=== PATIENT | male | born 1995 | race Hispanic/Latino ===

== ENCOUNTER 2017-06-26 02:52 | Emergency (ER) | payer OTHER ==
[2017-06-26] MEDS ORDERED: ACT CHARCOAL/SORB 50 GM/240ML ONE (03:18)
[2017-06-26 04:04] LABS: Absolute Lymphocytes (CBC) 3.8 K/uL (0.7-4.9); Absolute Monocytes 0.9 K/uL (0.1-1.3); Absolute Neutrophil 5.9 K/uL (1.8-8.0); Basophils % 0.3 % (0-1.3); Hematocrit 44.8 % (39.6-49.0); MCH 30.6 pg (27.0-35.0); MCV 89.5 fL (80-100); MPV 8.8 fL (7.6-11.3); Monocytes % 8.7 % (3.3-12.3); RBC Red Blood Cell Count 5.01 M/uL (4.33-5.43)
[2017-06-26 04:07] LABS: Protime INR 1.04
[2017-06-26 04:16] LABS: Bicarbonate 26 mEq/L (21-31); Glucose Level 93 mg/dL (65-120); Potassium 3.6 mEq/L (3.6-5.0); Sodium Level 138 mEq/L (135-145)
[2017-06-26 04:22] LABS: ALT/SGPT 41 IU/L (10-60); AST/SGOT 23 IU/L (10-42); Albumin 4.4 g/dL (3.2-5.5); Alkaline Phosphatase 63 IU/L (42-121); BUN Blood Urea Nitrogen 12 mg/dL (6-20); Bilirubin Direct 0.1 mg/dL (0-0.2); Bilirubin Total 0.9 mg/dL (0.3-1.2); Protein, Total 7.4 g/dL (6.0-8.3)
[2017-06-26 04:35] LABS: Alcohol Serum/Plasma < 10 mg/dl; Salicylates Level < 4.0 mg/dl (<30)
[2017-06-26 05:04] LABS: Barbiturates NEGATIVE; Benzodiazepines NEGATIVE; Cocaine NEGATIVE; METHAMPHETAM NEGATIVE; Opiates NEGATIVE; Phencyclidine NEGATIVE; THC Cannibis NEGATIVE
--- NOTE | 2017-06-26 06:55 | EKG ---
Test Date: 2017-06-26 Test Time: 03:17:03 [employer]: EDDA MEASUREMENT RESULTS: Intervals: Rate: 75 UT: 136 QRSD: 86 QT: 390 QTc: 435 [place]: P: 26 UT: 136 QRS: 64 T: 50 INTERPRETIVE STATEMENTS: Normal sinus rhythm Normal ECG No previous ECG available for comparison Electronically Signed On 06-26-17 06:54:48 CDT by Sanket Ruiz
[2017-06-26 08:30] LABS: Urine Blood NEGATIVE (NEG); Urine Glucose NEGATIVE (NEG); Urine Protein NEGATIVE (NEG); Urine Specific Gravity 1.015 (1.005-1.030)
--- NOTE | 2017-06-26 14:58 | ER ---
Nurse's Notes [facility] Name: Jerry De Anda Age: 22 yrs Sex: Male : 1995 Arrival Date: 06/26/2017 Time: 02:53 Bed 7 Private MD: Diagnosis: Suicidal ideations Presentation: 06/26 02:53 Presenting complaint: EMS states: pt took 6 Tegretol at 0145 in attempt to "kill ak1 himself" pt stated to EMS his "baby juliaa is with another man's baby." pt stated to EMS he jumped from unknown height head first trying to kill himself yesterday. pt is incarcerated and 2 guards are at bedside. pt A\\T\\OX4 but c/o drowsiness and "drunk feeling". Transition of care: patient was not received from another setting of care. Onset of symptoms was June 26, 2017. Care prior to arrival: IV 50ml NS. 02:53 Method Of Arrival: EMS: [facility] ak1 02:53 Acuity: FORREST 2 ak1 Triage Assessment: 02:59 General: Appears in no apparent distress. Behavior is calm, cooperative. Pain: Denies ak1 pain. EENT: No signs and/or symptoms were reported regarding the EENT system. Neuro: Level of Consciousness is awake, alert, obeys commands, Oriented to person, place, time, situation, Forepart Rounder are equal bilaterally Moves all extremities. Gait is steady, Speech is normal, Facial symmetry appears normal. Cardiovascular: No deficits noted. Respiratory: No deficits noted. GI: No signs and/or symptoms were reported involving the gastrointestinal system. : No signs and/or symptoms were reported regarding the genitourinary system. Derm: No signs and/or symptoms reported regarding the dermatologic system. Musculoskeletal: No signs and/or symptoms reported regarding the musculoskeletal system. Historical: - Allergies: 02:59 No Known Allergies; ak1 - Home Meds: 02:59 Benadryl Oral [Active]; ak1 - PMHx: 02:59 insomnia; ak1 - PSHx: 02:59 None; ak1 - Immunization history:: Adult Immunizations unknown. - Social history:: Smoking status: Patient/guardian denies using tobacco. Screenin:01 Abuse screen: Denies threats or abuse. Denies injuries from another. Nutritional ak1 screening: No deficits noted. Tuberculosis screening: No symptoms or risk factors identified. Fall Risk None identified. Assessment: 03:08 Reassessment: poison control contacted. recommended basic lab studies with toxic panel ak1 workup with Tegretol every 4 hours until a down trend, EKG was recommended, activated charcoal 1gram to 2 grams per kilogram. monitor for seizures, EKG changes and raspatory depression and [employer] depression. . 03:12 Reassessment: unknown as to the dose of the Tegretol pills. ak1 04:43 Reassessment: Patient appears in no apparent distress at this time. No changes from ak1 previously documented assessment. Patient and/or family updated on plan of care and expected duration. Pain level reassessed. Patient is alert, oriented x 3, equal unlabored respirations, skin warm/dry/pink. pt still drinking his charcoal. pt informed of importance to finish drinking the charcoal. 05:16 Reassessment: poison control updated on pt status. [facility] contacted to send a ak1 screener once all labs are resulted. . 06:47 Reassessment: Patient appears in no apparent distress at this time. No changes from ak1 previously documented assessment. Patient and/or family updated on plan of care and expected duration. Pain level reassessed. Patient is alert, oriented x 3, equal unlabored respirations, skin warm/dry/pink. pt cooperative drinking the charcoal. 07:19 Reassessment: Patient appears in no apparent distress at this time. Patient and/or sv family updated on plan of care and expected duration. Pain level reassessed. Patient is alert, oriented x 3, equal unlabored respirations, skin warm/dry/pink. Pt denies suicidal ideation. Pt has 2 half-way guards at the bedside. Patient states feeling better. Patient states symptoms have improved. 08:03 Reassessment: Patient appears in no apparent distress at this time. Patient and/or sv family updated on plan of care and expected duration. Pain level reassessed. Patient is alert, oriented x 3, equal unlabored respirations, skin warm/dry/pink. 09:18 Reassessment: Basilio from Poison control called for an update. sv 09:58 Reassessment: Patient appears in no apparent distress at this time. Patient and/or sv family updated on plan of care and expected duration. Pain level reassessed. Patient is alert, oriented x 3, equal unlabored respirations, skin warm/dry/pink. 10:12 Reassessment: Patient appears in no apparent distress at this time. Patient and/or sv family updated on plan of care and expected duration. Pain level reassessed. Patient is alert, oriented x 3, equal unlabored respirations, skin warm/dry/pink. Informed we are waiting for a public health representative to come speak with the pt from [facility] and then the half-way personal will take care of the rest. 11:00 Reassessment: Patient appears in no apparent distress at this time. No changes from sv previously documented assessment. Patient and/or family updated on plan of care and expected duration. Pain level reassessed. Patient is alert, oriented x 3, equal unlabored respirations, skin warm/dry/pink. 13:00 Reassessment: Patient appears in no apparent distress at this time. No changes from sv previously documented assessment. Patient and/or family updated on plan of care and expected duration. Pain level reassessed. Patient is alert, oriented x 3, equal unlabored respirations, skin warm/dry/pink. 14:50 Reassessment: [facility] public health representative here to speak with the pt. sv 15:10 Reassessment: Patient appears in no apparent distress at this time. Patient and/or sv family updated on plan of care and expected duration. Pain level reassessed. Patient is alert, oriented x 3, equal unlabored respirations, skin warm/dry/pink. Vital Signs: 02:59 BP 142 / 80; Pulse 77; Resp 16; Temp 98.6(O); Pulse Ox 100% on R/A; Weight 92.99 kg ak1 (R); Height 6 ft. 1 in. (185.42 cm) (R); Pain 0/10; 03:05 BP 122 / 81; Pulse 77; Resp 16; Temp 98.6; Pulse Ox 100% on R/A; ak1 04:02 BP 132 / 73; Pulse 76; Resp 18; Pulse Ox 97% on R/A; Pain 0/10; ak1 04:43 BP 115 / 78; Pulse 88; Resp 18; Pulse Ox 100% on R/A; ak1 05:22 BP 134 / 94; Pulse 78; Resp 16; Temp 98.5; Pulse Ox 100% on R/A; Pain 0/10; ak1 06:22 BP 115 / 80; Pulse 74; Resp 16; Temp 98.3; Pulse Ox 100% on R/A; Pain 0/10; ak1 07:19 BP 131 / 90; Pulse 95; Resp 18; Pulse Ox 99% on R/A; sv 08:03 BP 115 / 77; Pulse 68; Resp 18; Pulse Ox 98% on R/A; Pain 0/10; sv 09:00 BP 109 / 73; Pulse 68; Resp 20; Pulse Ox 100% ; sv 10:13 BP 115 / 79; Pulse 79; Resp 20; Pulse Ox 100% ; sv 11:00 BP 127 / 85; Pulse 80; Resp 23; Pulse Ox 98% ; sv 12:00 BP 122 / 71; Pulse 67; Resp 17; Pulse Ox 98% on R/A; sv 13:44 BP 112 / 72; Pulse 65; Resp 22; Pulse Ox 100% on R/A; mh5 14:00 BP 121 / 85; Pulse 83; Resp 22; Pulse Ox 99% on R/A; sv 15:11 BP 122 / 88; Pulse 80; Resp 18; Pulse Ox 98% ; sv 02:59 Body Mass Index 27.05 (92.99 kg, 185.42 cm) ak1 ED Course: 02:53 Patient arrived in ED. ak1 02:53 Safety Checks: Personal items have been removed pt in 4 point handcuffs with 2 guards ak1 at bedside. The door is open or patient has been placed in a hallway bed/chair. 02:56 Shaquille Bartlett MD is Attending Physician. tw4 02:58 Triage completed. ak1 02:59 Arm band placed on Patient placed in an exam room, on a stretcher, on pulse oximetry, ak1 Patient notified of wait time. 03:00 Safety Checks: The door is open or patient has been placed in a hallway bed/chair. pt ak1 with 2 guards at bedside and in 4 point handcuffs. 03:01 Patient has correct armband on for positive identification. Bed in low position. Call ak1 light in reach. Side rails up X2. Security at bedside. Pulse ox on. NIBP on. 03:01 Maintain EMS IV. Dressing intact. Site clean \\T\\ dry. Gauge \\T\\ site: 20G left hand. ak 1 03:02 No provider procedures requiring assistance completed. ak1 03:03 Hortencia Linares, RN is Primary Nurse. ak1 03:15 Safety Checks: The door is open or patient has been placed in a hallway bed/chair. ak1 03:22 Initial lab(s) drawn, by me, sent to lab. EKG done, by ED staff, reviewed by Shaquille Bartlett MD. 03:30 Safety Checks: The door is open or patient has been placed in a hallway bed/chair. ak1 03:45 Safety Checks: The door is open or patient has been placed in a hallway bed/chair. ak1 04:00 Safety Checks: The door is open or patient has been placed in a hallway bed/chair. ak1 04:15 Safety Checks: The door is open or patient has been placed in a hallway bed/chair. ak1 04:30 Safety Checks: The door is open or patient has been placed in a hallway bed/chair. ak1 04:45 Safety Checks: The door is open or patient has been placed in a hallway bed/chair. ak1 05:00 Safety Checks: The door is open or patient has been placed in a hallway bed/chair. ak1 05:15 Safety Checks: The door is open or patient has been placed in a hallway bed/chair. ak1 05:30 Safety Checks: The door is open or patient has been placed in a hallway bed/chair. ak1 05:45 Safety Checks: The door is open or patient has been placed in a hallway bed/chair. ak1 06:00 Safety Checks: The door is open or patient has been placed in a hallway bed/chair. ak1 06:15 Safety Checks: The door is open or patient has been placed in a hallway bed/chair. ak1 06:27 Safety Checks: The door is open or patient has been placed in a hallway bed/chair. ak1 06:27 2 guards at bedside with pt in [address] [facility] will send a screener.ak1 06:45 Safety Checks: The door is open or patient has been placed in a hallway bed/chair. ak1 06:56 Safety Checks: The door is open or patient has been placed in a hallway bed/chair. ak1 07:00 No apparent distress. Safety Checks: Personal items have been removed The door is open sv or patient has been placed in a hallway bed/chair. 2 half-way guards at the bedside. 07:01 Primary Nurse role handed off by Hortencia Linares RN sv 07:01 Luana Chaudhary, JAMES is Primary Nurse. sv 07:15 No apparent distress. Safety Checks: Personal items have been removed The door is open sv or patient has been placed in a hallway bed/chair. 2 half-way guards at the bedside. 07:18 Repeat lab(s) drawn. by me, sent to lab. sv 07:30 Safety Checks: Personal items have been removed The door is open or patient has been sv placed in a hallway bed/chair. 2 half-way guards at the bedside. 07:45 Safety Checks: Personal items have been removed The door is open or patient has been sv placed in a hallway bed/chair. 2 half-way guards at the bedside. 08:00 Safety Checks: Personal items have been removed The door is open or patient has been sv placed in a hallway bed/chair. 2 half-way guards at the bedside. 08:15 Safety Checks: Personal items have been removed The door is open or patient has been sv placed in a hallway bed/chair. 2 half-way guards at the bedside. 08:30 Safety Checks: Personal items have been removed The door is open or patient has been sv placed in a hallway bed/chair. 2 half-way guards at the bedside. 08:45 Safety Checks: Personal items have been removed The door is open or patient has been sv placed in a hallway bed/chair. 2 half-way guards at the bedside. 09:00 Safety Checks: Personal items have been removed The door is open or patient has been sv placed in a hallway bed/chair. 2 half-way guards at the bedside. 09:15 Safety Checks: Personal items have been removed The door is open or patient has been sv placed in a hallway bed/chair. 2 half-way guards at the bedside. 09:30 Safety Checks: Personal items have been removed The door is open or patient has been sv placed in a hallway bed/chair. 2 half-way guards at the bedside. 09:45 Safety Checks: Personal items have been removed The door is open or patient has been sv placed in a hallway bed/chair. 2 half-way guards at the bedside. 09:56 LAB Add On Sent. sv 10:00 Safety Checks: Personal items have been removed The door is open or patient has been sv placed in a hallway bed/chair. 2 half-way guards at the bedside. 10:15 Safety Checks: Personal items have been removed The door is open or patient has been sv placed in a hallway bed/chair. 2 half-way guards at the bedside. 10:30 Safety Checks: Personal items have been removed The door is open or patient has been sv placed in a hallway bed/chair. 2 half-way guards at the bedside. 10:45 Safety Checks: Personal items have been removed The door is open or patient has been sv placed in a hallway bed/chair. 2 half-way guards at the bedside. 11:00 Safety Checks: Personal items have been removed The door is open or patient has been sv placed in a hallway bed/chair. 2 half-way guards at the bedside. 11:15 Safety Checks: Personal items have been removed The door is open or patient has been sv placed in a hallway bed/chair. 2 half-way guards at the bedside. 11:30 Safety Checks: Personal items have been removed The door is open or patient has been sv placed in a hallway bed/chair. 2 half-way guards at the bedside. 11:45 Safety Checks: Personal items have been removed The door is open or patient has been sv placed in a hallway bed/chair. 2 half-way guards at the bedside. 12:00 Safety Checks: Personal items have been removed The door is open or patient has been sv placed in a hallway bed/chair. 2 half-way guards at the bedside. 15:11 IV discontinued, intact, bleeding controlled, No redness/swelling at site. Pressure sv dressing applied. Administered Medications: 03:31 Drug: Activated Charcoal Suspension (50 g/240 mL) 1 g/kg Route: PO; ak1 05:15 Follow up: Response: No adverse reaction ak1 Outcome: 14:58 Discharge ordered by . rn 15:11 Discharged to Law Enforcement sv 15:11 Condition: stable 15:11 Discharge instructions given to half-way guards Instructed on discharge instructions, follow up and referral plans. Demonstrated understanding of instructions, follow-up care. 15:13 Patient left the ED. sv Signatures: Luana Chaudhary RN RN Isacc Guzman MD MD rn Christian, Chelsea cc Krenek, Amber, RN Mandy Foy [facility] Shaquille Bartlett MD MD tw4 Corrections: (The following items were deleted from the chart) 08:00 07:19 Reassessment: Patient appears in no apparent distress at this time. Patient sv and/or family updated on plan of care and expected duration. Pain level reassessed. Patient is alert, oriented x 3, equal unlabored respirations, skin warm/dry/pink. Patient states feeling better. Patient states symptoms have improved. sv 08:01 07:19 Reassessment: Patient appears in no apparent distress at this time. Patient sv and/or family updated on plan of care and expected duration. Pain level reassessed. Patient is alert, oriented x 3, equal unlabored respirations, skin warm/dry/pink. Pt denies suicidal ideation. Patient states feeling better. Patient states symptoms have improved. sv
--- NOTE | 2017-06-26 14:58 | EDPHYS ---
Physician Documentation [facility] Name: Jerry De Anda Age: 22 yrs Sex: Male : 1995 Arrival Date: 06/26/2017 Time: 02:53 Bed 7 Private MD: ED Physician Shaquille Bartlett HPI: 06/26 06:34 This 22 yrs old Male presents to ER via EMS with complaints of Possible tw4 Overdose. 06:34 The patient presents to the emergency department with a known poisoning. Context: tw4 Method:. Associated signs and symptoms: The patient has no apparent associated signs or symptoms. Severity of symptoms: At their worst the symptoms were moderate in the emergency department the symptoms are unchanged. The patient has not experienced similar symptoms in the past. 06:34 The patient presents to the emergency department after a known overdose, that was tw4 intentional. Context: Time: just prior to arrival, Extent: mild ingestion, took 6 Tegretol tabs, and was witnessed by a bystander. Historical: - Allergies: 02:59 No Known Allergies; ak1 - Home Meds: 02:59 Benadryl Oral [Active]; ak1 - PMHx: 02:59 insomnia; ak1 - PSHx: 02:59 None; ak1 - Immunization history:: Adult Immunizations unknown. - Social history:: Smoking status: Patient/guardian denies using tobacco. ROS: 06:34 Constitutional: Negative for fever, chills, and weight loss, Cardiovascular: Negative tw4 for chest pain, palpitations, and edema, Respiratory: Negative for shortness of breath, cough, wheezing, and pleuritic chest pain, Abdomen/GI: Negative for abdominal pain, nausea, vomiting, diarrhea, and constipation, MS/Extremity: Negative for injury and deformity. 06:34 Neuro: Positive for dizziness, Negative for altered mental status, gait disturbance, headache, hearing loss, loss of consciousness, numbness, seizure activity, speech changes, syncope. 06:34 Psych: Positive for depression, suicide gesture. Exam: 06:34 Constitutional: This is a well developed, well nourished patient who is awake, alert, tw4 and in no acute distress. Head/Face: Normocephalic, atraumatic. Chest/axilla: Normal chest wall appearance and motion. Nontender with no deformity. No lesions are appreciated. Cardiovascular: Regular rate and rhythm with a normal S1 and S2. No gallops, murmurs, or rubs. Normal PMI, no JVD. No pulse deficits. Respiratory: Lungs have equal breath sounds bilaterally, clear to auscultation and percussion. No rales, rhonchi or wheezes noted. No increased work of breathing, no retractions or nasal flaring. Abdomen/GI: Soft, non-tender, with normal bowel sounds. No distension or tympany. No guarding or rebound. No evidence of tenderness throughout. Back: No spinal tenderness. No costovertebral tenderness. Full range of motion. MS/ Extremity: Pulses equal, no cyanosis. Neurovascular intact. Full, normal range of motion. 06:34 Psych: Behavior/mood is pleasant, Affect is calm, Oriented to person, place, time, Patient having thoughts of suicide. Plan for suicide is took pills after issues with significant other Judgement / Insight is normal. 06:38 ECG was reviewed by the Attending Physician. tw4 Vital Signs: 02:59 BP 142 / 80; Pulse 77; Resp 16; Temp 98.6(O); Pulse Ox 100% on R/A; Weight 92.99 kg ak1 (R); Height 6 ft. 1 in. (185.42 cm) (R); Pain 0/10; 03:05 BP 122 / 81; Pulse 77; Resp 16; Temp 98.6; Pulse Ox 100% on R/A; ak1 04:02 BP 132 / 73; Pulse 76; Resp 18; Pulse Ox 97% on R/A; Pain 0/10; ak1 04:43 BP 115 / 78; Pulse 88; Resp 18; Pulse Ox 100% on R/A; ak1 05:22 BP 134 / 94; Pulse 78; Resp 16; Temp 98.5; Pulse Ox 100% on R/A; Pain 0/10; ak1 06:22 BP 115 / 80; Pulse 74; Resp 16; Temp 98.3; Pulse Ox 100% on R/A; Pain 0/10; ak1 07:19 BP 131 / 90; Pulse 95; Resp 18; Pulse Ox 99% on R/A; sv 08:03 BP 115 / 77; Pulse 68; Resp 18; Pulse Ox 98% on R/A; Pain 0/10; sv 09:00 BP 109 / 73; Pulse 68; Resp 20; Pulse Ox 100% ; sv 10:13 BP 115 / 79; Pulse 79; Resp 20; Pulse Ox 100% ; sv 11:00 BP 127 / 85; Pulse 80; Resp 23; Pulse Ox 98% ; sv 12:00 BP 122 / 71; Pulse 67; Resp 17; Pulse Ox 98% on R/A; sv 13:44 BP 112 / 72; Pulse 65; Resp 22; Pulse Ox 100% on R/A; mh5 14:00 BP 121 / 85; Pulse 83; Resp 22; Pulse Ox 99% on R/A; sv 15:11 BP 122 / 88; Pulse 80; Resp 18; Pulse Ox 98% ; sv 02:59 Body Mass Index 27.05 (92.99 kg, 185.42 cm) ak1 MDM: 03:24 Patient medically screened. tw4 06:38 Differential diagnosis: Ingestion/exposure to Tegeretol polypharmacy. Data reviewed: tw4 vital signs, nurses notes. Test interpretation: by ED physician or midlevel provider: ECG. 06:38 Counseling: I had a detailed discussion with the patient and/or guardian regarding: the tw4 historical points, exam findings, and any diagnostic results supporting the discharge/admit diagnosis, lab results. Other consultation: cattle care worker was called and will evaluate the patient's circumstances, [facility]. 14:58 ED course: Evaluated by [facility] mental health screener, patient with 2 recent rn suicide attempts/ideations, [facility], relayed message to [facility] unit and guards, they contacted the unit, and state to take him back, will place under suicide watch and have psychiatry see him there. . 06/26 02:56 Order name: Acetaminophen; Complete Time: 08:25 06/26 02:56 Order name: Basic Metabolic Panel; Complete Time: 08:25 06/26 02:56 Order name: CBC with Diff; Complete Time: 08:25 06/26 02:56 Order name: ETOH Level; Complete Time: 08:25 06/26 02:56 Order name: Hepatic Function; Complete Time: 08:25 06/26 02:56 Order name: PT-INR; Complete Time: 08:25 06/26 02:56 Order name: Ptt, Activated; Complete Time: 08:25 06/26 02:56 Order name: Salicylate; Complete Time: 08:25 tw4 06/26 02:56 Order name: Urine Drug Screen; Complete Time: 08:25 tw4 06/26 03:15 Order name: Carbamazepine (tegretol); Complete Time: 08:25 ak1 06/26 07:32 Order name: LAB Add On ag 06/26 07:33 Order name: Carbamazepine (Tegretol) Level; Complete Time: 08:25 EDMS 06/26 07:43 Order name: Urine Dipstick--Ancillary (enter results) ag 06/26 02:56 Order name: EKG; Complete Time: 02:57 tw4 06/26 02:56 Order name: EKG - Nurse/Tech; Complete Time: 03:22 tw4 06/26 02:56 Order name: IV Saline Lock; Complete Time: 03:15 tw4 06/26 02:56 Order name: Labs collected and sent; Complete Time: 03:15 tw4 06/26 02:56 Order name: Urine Dipstick-Ancillary (obtain specimen); Complete Time: 05:16 tw4 06/26 10:19 Order name: Diet Regular; Complete Time: 10:19 sv Administered Medications: 03:31 Drug: Activated Charcoal Suspension (50 g/240 mL) 1 g/kg Route: PO; ak1 05:15 Follow up: Response: No adverse reaction ak1 Disposition: 06/26/17 14:58 Discharged to Home. Impression: Suicidal ideations. - Condition is Stable. - Discharge Instructions: Depression, Adult, Helping Someone Who is Suicidal. - Medication Reconciliation Form, Thank You Letter, Antibiotic Education, Prescription Opioid Use form. - Follow up: Private Physician; When: As needed; Reason: Recheck today's complaints, Re-evaluation by your physician. - Problem is new. - Symptoms have improved. Signatures: Dispatcher [employer] EDLuana Fraire RN RN sv Nieto, Roman, MD MD rn Krenek, Amber, RN RN ak1 Shaquille Bartlett MD MD tw4
== END 2017-06-26 15:13 | disposition home or self-care (01) ==
LOC: ER 02:52
DX: R45.851 Suicidal ideations (principal)
CPT/HCPCS: 36415; 80048; 80076; 80156; 80307; 80320; 80329; 81003; 85025; 85610; 85730; 93005; 99285

== ENCOUNTER 2017-07-18 02:13 | Emergency (ER) | payer OTHER ==
[2017-07-18 02:41] LABS: Absolute Monocytes 0.8 K/uL (0.1-1.3); Absolute Neutrophil 5.6 K/uL (1.8-8.0); Basophils % 0.6 % (0-1.3); Eosinophils % 0.6 % (0-4.4); Hematocrit 46.1 % (39.6-49.0); Lymphocytes % 31.6 % (15.3-44.8); MCH 31.3 pg (27.0-35.0); MCV 90.7 fL (80-100); MPV 8.3 fL (7.6-11.3); Monocytes % 8.6 % (3.3-12.3); RBC Red Blood Cell Count 5.08 M/uL (4.33-5.43)
[2017-07-18 02:47] LABS: Bicarbonate 25 mEq/L (21-31); Glucose Level 106 mg/dL (65-120); Potassium 3.9 mEq/L (3.6-5.0); Sodium Level 138 mEq/L (135-145)
[2017-07-18 02:51] LABS: ALT/SGPT 41 IU/L (10-60); AST/SGOT 20 IU/L (10-42); Albumin 4.6 g/dL (3.2-5.5); Alkaline Phosphatase 62 IU/L (42-121); BUN Blood Urea Nitrogen 14 mg/dL (6-20); Protein, Total 7.5 g/dL (6.0-8.3)
--- NOTE | 2017-07-18 04:50 | EDPHYS ---
Physician Documentation [facility] Name: Jerry De Anda Age: 22 yrs Sex: Male : 1995 Arrival Date: 07/18/2017 Time: 02:14 Bed 3 Private MD: ED Physician Hernandez Oneil HPI: 07/18 03:11 This 22 yrs old Male presents to ER via EMS with complaints of Trauma ps1 Complaint. 03:11 Trauma demographics: County: The injury occurred in [place] Location of Injury: The ps1 injury occurred half-way. Mechanism of injury: self inflicted hanging with cloth from pants. Associated injuries: The patient sustained neck, contusion. Onset: The symptoms/episode began/occurred just prior to arrival. The patient has been recently seen by a physician: a psychiatrist. reportedly found in cell with cloth ligature around neck. Questionable CPR per half-way guards. Patient was alert and oriented since EMS evaluated patient. No hoarseness or vocal changes. No expanding hematoma. Alert and oriented. He said that he was upset because he found out that his significant other that he had 2 children with had an affair and is by his cousin. . Historical: - Allergies: 02:20 No Known Allergies; bp - Home Meds: 02:20 Benadryl Oral [Active]; bp - PMHx: 02:20 insomnia; bp 02:26 Suicide attempt; fc - Immunization history: Last tetanus immunization: - up to date. - Social history:: Smoking status: Patient/guardian denies using tobacco. ROS: 03:11 Constitutional: Negative for fever, chills, and weight loss, Eyes: Negative for injury, ps1 pain, redness, and discharge, Cardiovascular: Negative for chest pain, palpitations, and edema, Respiratory: Negative for shortness of breath, cough, wheezing, and pleuritic chest pain, Abdomen/GI: Negative for abdominal pain, nausea, vomiting, diarrhea, and constipation, MS/Extremity: Negative for injury and deformity, Skin: Negative for injury, rash, and discoloration, Neuro: Negative for headache, weakness, numbness, tingling, and seizure. 03:11 Neck: Positive for tenderness. 03:11 Psych: Positive for suicide gesture, suicidal ideation. Exam: 03:11 Constitutional: This is a well developed, well nourished patient who is awake, alert, ps1 and in no acute distress. Head/Face: Normocephalic, atraumatic. Eyes: Pupils equal round and reactive to light, extra-ocular motions intact. Lids and lashes normal. Conjunctiva and sclera are non-icteric and not injected. ENT: Nares patent. No nasal discharge, no septal abnormalities noted. Tympanic membranes are normal and external auditory canals are clear. Oropharynx with no redness, swelling, or masses, exudates, or evidence of obstruction, uvula midline. Mucous membranes moist. Chest/axilla: Normal chest wall appearance and motion. Nontender with no deformity. No lesions are appreciated. Cardiovascular: Regular rate and rhythm. No gallops, murmurs, or rubs. Normal PMI, no JVD. No pulse deficits. Respiratory: Lungs have equal breath sounds bilaterally, clear to auscultation and percussion. No rales, rhonchi or wheezes noted. No increased work of breathing, no retractions or nasal flaring. Abdomen/GI: Soft, non-tender, with normal bowel sounds. No distension or tympany. No guarding or rebound. No evidence of tenderness throughout. MS/ Extremity: Pulses equal, no cyanosis. Neurovascular intact. Full, normal range of motion. Neuro: Awake and alert, GCS 15, oriented to person, place, time, and situation. Cranial nerves II-XII grossly intact. Sensory grossly intact. 03:11 Neck: External neck: erythema, that is mild, of the thyroid cartilage, right sternocleidomastoid and left sternocleidomastoid, no crepitus or expanding hematoma. , Trachea: is midline with no obvious abnormalities, ROM/movement: is normal, normal phonation. 03:11 Psych: Patient having thoughts of suicide. Plan for suicide is tried to hang himself Vital Signs: 02:20 BP 129 / 81; Pulse 79; Resp 16; Temp 98; Pulse Ox 96% on R/A; bp 02:27 Weight 90.72 kg; Height 6 ft. 1 in. (185.42 cm); Pain 9/10; fc 02:50 BP 122 / 78; Pulse 71; Resp 14; Pulse Ox 100% ; bp 03:10 BP 112 / 74; Pulse 77; Resp 14; Pulse Ox 100% ; bp 03:32 BP 125 / 88; Pulse 84; Resp 16; Pulse Ox 97% ; bp 02:27 Body Mass Index 26.39 (90.72 kg, 185.42 cm) [place] Coma Score: 02:20 Eye Response: spontaneous(4). Verbal Response: oriented(5). Motor Response: obeys bp commands(6). Total: 15. Trauma Score (Adult): 02:20 Eye Response: spontaneous(1); Verbal Response: oriented(1); Motor Response: obeys bp commands(2); Systolic BP: > 89 mm Hg(4); Respiratory Rate: 10 to 29 per min(4); [place] Score: 15; Trauma Score: 12 MDM: 02:33 Patient medically screened. ps1 03:32 Data reviewed: vital signs, nurses notes, radiologic studies, CT scan. Counseling: I ps1 had a detailed discussion with the patient and/or guardian regarding: the historical points, exam findings, and any diagnostic results supporting the discharge/admit diagnosis, radiology results, the need for outpatient follow up, a psychiatrist. ED course: CTA negative for acute injury. Back to half-way on suicide watch. . 07/18 02:18 Order name: CBC with Diff bp 07/18 02:18 Order name: CMP bp 07/18 02:18 Order name: CT Neck Angio bp Administered Medications: No medications were administered Disposition: 18 03:32 Discharged to Home. Impression: Suicide attempt. - Condition is Stable. - Discharge Instructions: Helping Someone Who is Suicidal. - Medication Reconciliation Form, Thank You Letter, Antibiotic Education, Prescription Opioid Use form. - Follow up: Private Physician; When: As needed; Reason: Recheck today's complaints, Continuance of care, Re-evaluation by your physician. Follow up: Emergency Department; When: As needed; Reason: Trouble breathing, Worsening of condition. - Problem is new. - Symptoms have improved. Signatures: Dispatcher [employer] EDMS Kay Hu RN RN Kemar Quintero RN RN Hernandez Wood MD MD ps1 Corrections: (The following items were deleted from the chart) 02:25 02:19 Immunization history Last tetanus immunization: unknown bp fc 02:26 02:19 Immunization history Last tetanus immunization: unknown [facility] 03:14 03:11 reportedly found in cell with cloth ligature around neck. Questionable CPR per ps1 half-way guards. Patient was alert and oriented since EMS evaluated patient. No hoarseness or vocal changes. No expanding hematoma. Alert and oriented. . ps1
--- NOTE | 2017-07-18 04:50 | ER ---
Nurse's Notes [facility] Name: Jerry De Anda Age: 22 yrs Sex: Male : 1995 Arrival Date: 07/18/2017 Time: 02:14 Bed 3 Private MD: Diagnosis: Suicide attempt Presentation: 07/18 02:10 Acuity: FORREST 2 02:10 Presenting complaint: EMS states: that pt was found hanging in his cell. He tore about fc his pant legs and used them to tie around his neck. They were told guards did 1 min of CPR prior to EMS arrival. Pt remains nonverbal. Pt was just returned to [facility] from the [facility] (psych unit) yesterday post suicide attempt last month. Care prior to arrival: Cervical collar in place. IV initiated. 20 GA, in the left antecubital area, Glucose check: 95. Mechanism of Injury: Hanging by pant legs. Trauma event details: Injury occurred in the [facility], Injury occurred: [facility] Injury occurred: July 18, 2017 Injury occurred at: 01:20. 02:10 Method Of Arrival: EMS: [facility] 02:10 Transition of care: TD. bp 02:10 Onset of symptoms was July 18, 2017 at 01:00. Initial Sepsis Screen: Does the patient bp meet any 2 criteria? No. Patient's initial sepsis screen is negative. Does the patient have a suspected source of infection? No. Patient's initial sepsis screen is negative. Trauma Activation: Alert Physician: ED Physician; Name: ; Notified At: 02:08; Arrived At: 02:10 Physician: General Surgeon; Name: ; Notified At: 02:08; Arrived At: Physician: Radiology; Name: Zeynep Harper; Notified At: 02:08; Arrived At: 02:10 Physician: Respiratory; Name: Luis Eduardo; Notified At: 02:08; Arrived At: 02:10 Physician: Lab; Name: ; Notified At: 02:08; Arrived At: Historical: - Allergies: 02:20 No Known Allergies; bp - Home Meds: 02:20 Benadryl Oral [Active]; bp - PMHx: 02:20 insomnia; bp 02:26 Suicide attempt; fc - Immunization history: Last tetanus immunization: - up to date. - Social history:: Smoking status: Patient/guardian denies using tobacco. Screenin:10 Fall Risk None identified. bp 02:20 Abuse screen: Denies threats or abuse. Denies injuries from another. Nutritional bp screening: No deficits noted. Tuberculosis screening: No symptoms or risk factors identified. Fall risk None identified. Primary Survey: 02:20 A: Airway: patent. Breathing/Chest: Respiratory pattern: regular, Respiratory effort: bp spontaneous, unlabored, Breath sounds: clear, Chest inspection: symmetrical rise and fall of the chest. Circulation: Skin color: pink, Skin temperature: warm, dry. Disability Alert. 03:11 Reassessment Airway Airway Patent Breathing/Chest Respiratory pattern Regular bp Respiratory effort Spontaneous Unlabored Circulation Pulses Palpable Color Tobias Temperature Warm Dry. Secondary Survey: 02:20 HEENT: No deficits noted. Throat: No injury or deformity noted. is clear with gag bp reflex present. Gastrointestinal: No deficits noted. Abdomen is soft, non-distended. : No signs and/or symptoms were reported regarding the genitourinary system. Musculoskeletal: Circulation, motion, and sensation intact. Range of motion: intact in all extremities. Assessment: 02:16 General: Appears in no apparent distress. comfortable, Behavior is cooperative, bp appropriate for age, anxious. Pain: Complains of pain in neck Pain currently is 9 out of 10 on a pain scale. Neuro: Level of Consciousness is awake, alert, obeys commands, Oriented to REFUSING TO ANSWER. EENT: NO VOICE ALTERATIONS/HOARSENESS. Cardiovascular: Rhythm is sinus rhythm. Respiratory: Airway is patent is compromised Respiratory effort is even, unlabored, Respiratory pattern is regular, symmetrical. 02:16 GI: No signs and/or symptoms were reported involving the gastrointestinal system. : bp No signs and/or symptoms were reported regarding the genitourinary system. Derm: No signs and/or symptoms reported regarding the dermatologic system. Musculoskeletal: Circulation, motion, and sensation intact. Range of motion: intact in all extremities. Injury Description: NECK LIGATURE. 02:16 Reassessment: RECD 22YO HM VIA EMS FROM [facility] S/P TYING A RAG AROUND HIS NECK. PER EMS, FACILITY PERSONNEL PERFORMED CPR DESPITE PT STILL BEING AWAKE AND BREATHING. SLIGHT LIGATURE SAMUEL NOTED ON NECK, NO DEFORMITY OR HOARSENESS NOTED. 02:30 Reassessment: PT TO CT WITH [facility] CORRECTIONAL OFFICERS AT B/S. bp 02:50 Reassessment: PT RETURNED FROM CT. ALL CURRENT STUDIES COMPLETE, C COLLAR REMAINS IN bp PLACE. RESULTS PENDING. 03:10 Reassessment: C-COLLAR CLEARED BY . PT REMAINS NEURO INTACT. bp 03:33 Reassessment: PT D/C TO [facility] WITH CORRECTIONAL OFFICERS, DX WITH SUICIDE ATTEMPT. bp Vital Signs: 02:20 BP 129 / 81; Pulse 79; Resp 16; Temp 98; Pulse Ox 96% on R/A; bp 02:27 Weight 90.72 kg; Height 6 ft. 1 in. (185.42 cm); Pain 9/10; fc 02:50 BP 122 / 78; Pulse 71; Resp 14; Pulse Ox 100% ; bp 03:10 BP 112 / 74; Pulse 77; Resp 14; Pulse Ox 100% ; bp 03:32 BP 125 / 88; Pulse 84; Resp 16; Pulse Ox 97% ; bp 02:27 Body Mass Index 26.39 (90.72 kg, 185.42 cm) fc [place] Coma Score: 02:20 Eye Response: spontaneous(4). Verbal Response: oriented(5). Motor Response: obeys bp commands(6). Total: 15. Trauma Score (Adult): 02:20 Eye Response: spontaneous(1); Verbal Response: oriented(1); Motor Response: obeys bp commands(2); Systolic BP: > 89 mm Hg(4); Respiratory Rate: 10 to 29 per min(4); [place] Score: 15; Trauma Score: 12 ED Course: 02:14 Patient arrived in ED. am2 02:15 Kemar Hansen, RN is Primary Nurse. bp 02:20 Patient has correct armband on for positive identification. Bed in low position. Call bp light in reach. Side rails up X2. Adult w/ patient. 02:20 Patient maintains SpO2 saturation greater than 95% on room air. bp 02:20 Maintain EMS IV. Dressing intact. Good blood return noted. Site clean \T\ dry. Gauge \T\ bp site: 20 GAUGE LEFT AC. Thermoregulation: warm blanket given to patient. 02:24 Triage completed. fc 02:30 Hernandez Oneil MD is Attending Physician. ps1 02:56 CT Neck Angio Sent. bp 03:11 No provider procedures requiring assistance completed. IV discontinued, intact, bp bleeding controlled, No redness/swelling at site. Pressure dressing applied. 03:13 Arm band placed on. bp Administered Medications: No medications were administered Intake: 02:20 PO: 0ml; Total: 0ml. bp Output: 02:20 Urine: 0ml; Total: 0ml. bp Outcome: 03:32 Discharge ordered by . ps1 03:41 Patient left the ED. bp Signatures: Kay Hu RN RN fc Yenifer Palacios Brian RN RN bp Hernandez Oneil MD MD ps1 Corrections: (The following items were deleted from the chart) 02:25 02:19 Immunization history Last tetanus immunization: unknown bp fc 02:26 02:19 Immunization history Last tetanus immunization: unknown fc fc
--- NOTE | 2017-07-18 08:28 | RAD REPORT ---
EXAM DESCRIPTION: CT - Neck Angio - 07/18/2017 4:31 am CLINICAL HISTORY: Trauma, neck injury. Neck pain. COMPARISON: None. FINDINGS: CT angiography of the neck vessels was performed with volume rendering. No flow abnormality is seen involving the neck vessels. Codominant vertebral arteries are present. No cervical spine fracture or subluxation present. No intrinsic or extrinsic neck mass. IMPRESSION: Negative study.
== END 2017-07-18 03:41 | disposition home or self-care (01) ==
LOC: ER 02:13
DX: T14.91XA Suicide attempt, initial encounter (principal); X83.8XXA Intentional self-harm by other specified means, initial encounter; Y93.89 Activity, other specified; Y92.143 Cell of prison as the place of occurrence of the external cause
CPT/HCPCS: 36415; 70498; 80053; 85025; 99284; Q9967

== ENCOUNTER 2017-07-26 09:30 | Emergency (ER) | payer OTHER ==
[2017-07-26] MEDS ORDERED: NA CHLORIDE 0.9% 1,000 ML ONE (09:50)
--- NOTE | 2017-07-26 10:09 | RAD REPORT ---
EXAM DESCRIPTION: CT - C Spine Wo Con - 07/26/2017 9:48 am CLINICAL HISTORY: Trauma, neck injury. COMPARISON: 07/18/2017 TECHNIQUE: Axial 2 mm thick images of the cervical spine were obtained with sagittal and coronal rec onstruction images generated and reviewed. All CT scans are performed using dose optimization technique as appropriate and may include automated exposure control or mA/KV adjustment according to patient size. FINDINGS: Cervical body height and alignment are normal. No disk space narrowing. No fracture or acu te bony abnormality. No paraspinal mass or hematoma. IMPRESSION: No acute cervical spine finding.
--- NOTE | 2017-07-26 10:11 | RAD REPORT ---
EXAM DESCRIPTION: RAD - Chest Single View - 07/26/2017 9:58 am CLINICAL HISTORY: Chest pain. COMPARISON: None. FINDINGS: Portable technique limits examination quality. The lungs are grossly clear. The heart is normal in size. No displaced fractures. IMPRESSION: No acute intrathoracic process suspected.
[2017-07-26 10:14] LABS: Absolute Lymphocytes (CBC) 1.7 K/uL (0.7-4.9); Absolute Monocytes 0.7 K/uL (0.1-1.3); Absolute Neutrophil 4.4 K/uL (1.8-8.0); Basophils % 0.4 % (0-1.3); Eosinophils % 0.5 % (0-4.4); Hematocrit 43.8 % (39.6-49.0); Lymphocytes % 24.6 % (15.3-44.8); MCH 31.1 pg (27.0-35.0); MCV 90.7 fL (80-100); MPV 8.3 fL (7.6-11.3); Monocytes % 9.7 % (3.3-12.3); RBC Red Blood Cell Count 4.82 M/uL (4.33-5.43)
[2017-07-26 10:18] LABS: Protime INR 1.13
[2017-07-26 10:35] LABS: Bicarbonate 24 mEq/L (21-31); Glucose Level 100 mg/dL (65-120); Potassium 3.8 mEq/L (3.6-5.0); Sodium Level 139 mEq/L (135-145)
[2017-07-26 10:43] LABS: ALT/SGPT 19 IU/L (10-60); AST/SGOT 17 IU/L (10-42); Albumin 4.4 g/dL (3.2-5.5); Alkaline Phosphatase 52 IU/L (42-121); BUN Blood Urea Nitrogen 12 mg/dL (6-20); Bilirubin Direct 0.1 mg/dL (0-0.2); Bilirubin Total 0.8 mg/dL (0.3-1.2); Creatine Phosphokinase 63 IU/L (22-269); Magnesium 1.9 mg/dL (1.8-2.5); Protein, Total 7.2 g/dL (6.0-8.3)
[2017-07-26 10:45] LABS: Alcohol Serum/Plasma < 10 mg/dl; Salicylates Level < 4.0 mg/dl (<30)
--- NOTE | 2017-07-26 10:53 | ER ---
Nurse's Notes [facility] Name: Jerry De Anda Age: 22 yrs Sex: Male : 1995 Arrival Date: 07/26/2017 Time: 09:30 Bed 4 Private MD: Diagnosis: Suicidal ideations;Suicide attempt-non toxic overdodse, hanging Presentation: 07/26 09:30 Mechanism of Injury: Hanging by bed sheets Hanging details: unknown length of time sg hanging, reports he was found on the ground by his bed. Trauma event details: Injury occurred in the [facility], Injury occurred: in an institution. Injury occurred: July 26, 2017. 09:31 Acuity: FORREST 2 hb 09:31 Presenting complaint: EMS states: Found hanging by sheet from side of bed in his [facility] hb cell. Negative LOC. Pt also reported taking 9 Tegretol today. Transition of care: [facility]. Onset of symptoms was July 26, 2017. 09:31 Method Of Arrival: EMS: [facility] 09:31 Care prior to arrival: Cervical collar in place. hb 09:35 Initial Sepsis Screen: Does the patient meet any 2 criteria? No. Patient's initial hb sepsis screen is negative. Does the patient have a suspected source of infection? No. Patient's initial sepsis screen is negative. Trauma Activation: Alert Physician: ED Physician; Name: ; Notified At: ; Arrived At: Physician: General Surgeon; Name: ; Notified At: ; Arrived At: Physician: Radiology; Name: ; Notified At: ; Arrived At: Physician: Respiratory; Name: ; Notified At: ; Arrived At: Physician: Lab; Name: ; Notified At: ; Arrived At: Historical: - Allergies: 09:46 No Known Allergies; sg - Home Meds: 09:46 Tegretol Oral [Active]; Benadryl Oral [Active]; sg - PMHx: 09:46 insomnia; SUICIDE ATTEMPT; sg - Immunization history:: Adult Immunizations up to date. - Immunization history: Last tetanus immunization: - up to date. - Family history:: not pertinent. - Social history:: Smoking status: unknown. Screenin:30 Abuse screen: Denies threats or abuse. Denies injuries from another. Nutritional sg screening: No deficits noted. Tuberculosis screening: No symptoms or risk factors identified. Never had TB. Fall Risk None identified. Primary Survey: 09:30 A: Airway: patent, No supplemental oxygen in use on arrival. Oral cavity: clear, gag sg reflex present, Trachea midline. Breathing/Chest: Respiratory pattern: regular, Respiratory effort: spontaneous, unlabored, Breath sounds: clear, Chest inspection: symmetrical rise and fall of the chest. Circulation: Heart tones present. Pulses: palpable right radial artery, right dorsalis pedis artery, left radial artery and left dorsalis pedis artery. Skin color: pink, Skin temperature: warm. Disability Alert. 09:40 Reassessment Airway Airway Patent Oxygen No O2 Oral cavity Clear +Gag reflex Trachea sg Midline Breathing/Chest Respiratory pattern Regular Respiratory effort Spontaneous Unlabored Breath sounds Clear Chest inspection Symmetrical Circulation Heart tones Present Pulses Palpable Color [place] Temperature Warm Disability Alert. 10:40 Reassessment Airway Airway Patent Oxygen No O2 Oral cavity Clear +Gag reflex Trachea sg Midline Breathing/Chest Respiratory pattern Regular Respiratory effort Spontaneous Unlabored Breath sounds Clear Chest inspection Symmetrical Circulation Heart tones Present Pulses Palpable Color [place] Temperature Warm Disability Alert. 11:40 Reassessment Airway Airway Patent Oxygen No O2 Oral cavity Clear +Gag reflex Trachea sg Midline Breathing/Chest Respiratory pattern Regular Respiratory effort Spontaneous Unlabored Breath sounds Clear Chest inspection Symmetrical Circulation Heart tones Present Pulses Palpable Color [place] Temperature Warm Disability Alert. Secondary Survey: 09:30 HEENT: No deficits noted. Throat: No injury or deformity noted. superficial abrasions sg noted to neck. Gastrointestinal: No deficits noted. : No deficits noted. No signs and/or symptoms were reported regarding the genitourinary system. Musculoskeletal: Circulation, motion, and sensation intact. Range of motion: intact in all extremities, Swelling absent Reports pain in neck. Assessment: 09:30 Reassessment: Elisha RN at [facility] maintaining C-Spine while Hodan RN adjust C-Collar for sg proper placement on pt. C-Collar secured at this time. 09:35 General: Appears in no apparent distress. comfortable, well groomed, well developed, sg well nourished, Behavior is calm, cooperative, appropriate for age. Pain: Complains of pain in neck Pain does not radiate. Quality of pain is described as tender, throbbing. Neuro: Level of Consciousness is awake, alert, obeys commands, Oriented to person, place, time, situation, Shipping Hand are equal bilaterally Moves all extremities. Speech is normal, Facial symmetry appears normal. Cardiovascular: Heart tones S1 S2 present Capillary refill is brisk in bilateral fingers Patient's skin is warm and dry. Chest pain is denied. Cardiovascular: Pulses are palpable in right radial artery, right dorsalis pedis artery, left radial artery and left dorsalis pedis artery. Respiratory: Airway is patent Respiratory effort is even, unlabored, Respiratory pattern is regular, symmetrical. GI: Abdomen is flat, non-distended. : No signs and/or symptoms were reported regarding the genitourinary system. EENT: No signs and/or symptoms were reported regarding the EENT system. Derm: Skin is intact, is healthy with good turgor, Skin is dry, Skin is pale, Skin temperature is warm. Musculoskeletal: Circulation, motion, and sensation intact. Capillary refill is brisk, in bilateral fingers. Swelling absent. 10:30 Reassessment: Patient appears in no apparent distress at this time. Patient and/or hb family updated on plan of care and expected duration. Pain level reassessed. Patient is alert, oriented x 3, equal unlabored respirations, skin warm/dry/pink. Officers remain at bedside. Vital Signs: 09:32 Pulse 66; Resp 16; Temp 99.1; Pulse Ox 100% on R/A; hb 09:46 BP 131 / 89; Pulse 74 MON; Resp 11 S; Pulse Ox 100% on R/A; sg 10:25 BP 128 / 77; Pulse 70; Resp 12 S; Pulse Ox 99% on R/A; Pain 7/10; sg 10:52 BP 132 / 86; Pulse 72; Resp 16; Pulse Ox 100% on R/A; hb 11:25 BP 126 / 72; Pulse 68; Resp 12 S; Pulse Ox 100% on R/A; Pain 7/10; sg [place]is Coma Score: 09:30 Eye Response: spontaneous(4). Verbal Response: oriented(5). Motor Response: obeys sg commands(6). Total: 15. 10:30 Eye Response: spontaneous(4). Verbal Response: oriented(5). Motor Response: obeys sg commands(6). Total: 15. 11:30 Eye Response: spontaneous(4). Verbal Response: oriented(5). Motor Response: obeys sg commands(6). Total: 15. Trauma Score (Adult): 09:30 Eye Response: spontaneous(1); Verbal Response: oriented(1); Motor Response: obeys sg commands(2); Systolic BP: > 89 mm Hg(4); Respiratory Rate: 10 to 29 per min(4); [place] Score: 15; Trauma Score: 12 10:30 Eye Response: spontaneous(1); Verbal Response: oriented(1); Motor Response: obeys sg commands(2); Systolic BP: > 89 mm Hg(4); Respiratory Rate: 10 to 29 per min(4); [place] Score: 15; Trauma Score: 12 11:30 Eye Response: spontaneous(1); Verbal Response: oriented(1); Motor Response: obeys sg commands(2); Systolic BP: > 89 mm Hg(4); Respiratory Rate: 10 to 29 per min(4); [place] Score: 15; Trauma Score: 12 ED Course: 09:30 Patient arrived in ED. aa5 09:30 Patient maintains SpO2 saturation greater than 95% on room air. Thermoregulation: warm sg blanket given to patient. 09:31 Triage completed. hb 09:33 Arm band placed on left wrist. hb 09:35 Luiz Ramirez MD is Attending Physician. renu 09:35 Patient has correct armband on for positive identification. Bed in low position. Call hb light in reach. Side rails up X2. Security at bedside. 09:44 Sunil Villarreal, RN is Primary Nurse. sg 09:[address] stretcher, with [employer] Guards. sg 09:45 Missed attempt(s): 20 gauge in right forearm. Bleeding controlled, band aid applied, sg catheter tip intact. 09:48 CT C Spine In Process Unspecified. EDMS 09:52 Patient moved back from [place]. sg 09:55 X-ray completed. Portable x-ray completed in exam room. Patient tolerated procedure sw well. 09:58 XRAY Chest (1 view) In Process Unspecified. EDMS 10:02 Initial lab(s) drawn, by me, sent to lab. Inserted saline lock: 20 gauge in left hand, sg using aseptic technique. Blood collected. 11:30 No provider procedures requiring assistance completed. IV discontinued, intact, hb bleeding controlled, No redness/swelling at site. Pressure dressing applied. Administered Medications: 10:01 Drug: NS 0.9% 1000 ml Route: IV; Rate: 1 bolus; Site: left hand; sg 11:00 Follow up: Response: No adverse reaction; IV Status: Completed infusion hb Intake: 11:20 IV: 1000ml (IV Fluid); Total: 1000ml. sg Output: 11:20 Urine: 1ml (Voided); Total: 1ml. sg Outcome: 10:52 Discharge ordered by . renu 11:30 Discharged to [facility] hb 11:30 Condition: stable 11:30 Discharge instructions given to patient, Instructed on discharge instructions, follow up and referral plans. medication usage, Demonstrated understanding of instructions, follow-up care, medications. 11:30 Patient's length of stay in the Emergency Department was greater than 2 hours. sg Patient's length of stay was extended due to staffing issues within the emergency department. 11:39 Patient left the ED. aa5 Signatures: Dispatcher [employer] EDMS Sunil Villarreal, RN Luiz Banegas MD MD cha Calderon, Audri RN RN aa5 Nathalia Benitez Heather, RN RN
--- NOTE | 2017-07-26 10:53 | EDPHYS ---
Physician Documentation [facility] Name: Jerry De Anda Age: 22 yrs Sex: Male : 1995 Arrival Date: 07/26/2017 Time: 09:30 Bed 4 Private MD: ED Physician Luiz Ramirez HPI: 07/26 09:41 This 22 yrs old Male presents to ER via EMS with complaints of Attempted renu Hanging. 09:41 Trauma demographics: County: The injury occurred in [place]. Mechanism of injury: renu hanging, took 9 tegretol as well. Associated injuries: The patient sustained neck injury, decreased range of motion. Onset: The symptoms/episode began/occurred just prior to arrival. The patient presents with trouble concentrating. Onset: The symptoms/episode began/occurred this morning. Possible causes: upset, suicidal. Patient's baseline: Neuro: alert and fully oriented. Historical: - Allergies: 09:46 No Known Allergies; sg - Home Meds: 09:46 Tegretol Oral [Active]; Benadryl Oral [Active]; sg - PMHx: 09:46 insomnia; SUICIDE ATTEMPT; sg - Immunization history:: Adult Immunizations up to date. - Immunization history: Last tetanus immunization: - up to date. - Family history:: not pertinent. - Social history:: Smoking status: unknown. ROS: 09:41 Constitutional: Negative for fever, chills, and weight loss, Eyes: Negative for injury, renu pain, redness, and discharge, ENT: Negative for injury, pain, and discharge, Cardiovascular: Negative for chest pain, palpitations, and edema, Respiratory: Negative for shortness of breath, cough, wheezing, and pleuritic chest pain, Abdomen/GI: Negative for abdominal pain, nausea, vomiting, diarrhea, and constipation, Back: Negative for injury and pain, : Negative for injury, bleeding, discharge, and swelling, MS/Extremity: Negative for injury and deformity, Skin: Negative for injury, rash, and discoloration, Neuro: Negative for headache, weakness, numbness, tingling, and seizure, Psych: Negative for depression, anxiety, suicide ideation, homicidal ideation, and hallucinations, Allergy/Immunology: Negative for hives, rash, and allergies, Endocrine: Negative for neck swelling, polydipsia, polyuria, polyphagia, and marked weight changes, Hematologic/Lymphatic: Negative for swollen nodes, abnormal bleeding, and unusual bruising. 09:41 Neck: Positive for injury or acute deformity, pain with movement, of the thyroid cartilage, right sternocleidomastoid, left sternocleidomastoid, right posterior aspect of neck, right lateral aspect of neck, right anterior aspect of neck, left posterior aspect of neck, left lateral aspect of neck and left anterior aspect of neck. Exam: 09:41 Constitutional: This is a well developed, well nourished patient who is awake, alert, renu and in no acute distress. Head/Face: Normocephalic, atraumatic. Eyes: Pupils equal round and reactive to light, extra-ocular motions intact. Lids and lashes normal. Conjunctiva and sclera are non-icteric and not injected. Cornea within normal limits. Periorbital areas with no swelling, redness, or edema. ENT: Nares patent. No nasal discharge, no septal abnormalities noted. Tympanic membranes are normal and external auditory canals are clear. Oropharynx with no redness, swelling, or masses, exudates, or evidence of obstruction, uvula midline. Mucous membranes moist. Chest/axilla: Normal chest wall appearance and motion. Nontender with no deformity. No lesions are appreciated. Cardiovascular: Regular rate and rhythm with a normal S1 and S2. No gallops, murmurs, or rubs. Normal PMI, no JVD. No pulse deficits. Respiratory: Lungs have equal breath sounds bilaterally, clear to auscultation and percussion. No rales, rhonchi or wheezes noted. No increased work of breathing, no retractions or nasal flaring. Abdomen/GI: Soft, non-tender, with normal bowel sounds. No distension or tympany. No guarding or rebound. No evidence of tenderness throughout. Back: No spinal tenderness. No costovertebral tenderness. Full range of motion. Male : Normal genitalia with no discharge or lesions. Skin: Warm, dry with normal turgor. Normal color with no rashes, no lesions, and no evidence of cellulitis. MS/ Extremity: Pulses equal, no cyanosis. Neurovascular intact. Full, normal range of motion. Neuro: Awake and alert, GCS 15, oriented to person, place, time, and situation. Cranial nerves II-XII grossly intact. Motor strength 5/5 in all extremities. Sensory grossly intact. Cerebellar exam normal. Normal gait. 09:41 Psych: Behavior/mood is pleasant, cooperative, Affect is calm, Oriented to person, place, time, Patient has no thoughts/intents to harm self or others. Judgement / Insight is normal. Delusions/hallucinations are not present. Vital Signs: 09:32 Pulse 66; Resp 16; Temp 99.1; Pulse Ox 100% on R/A; hb 09:46 BP 131 / 89; Pulse 74 MON; Resp 11 S; Pulse Ox 100% on R/A; sg 10:25 BP 128 / 77; Pulse 70; Resp 12 S; Pulse Ox 99% on R/A; Pain 7/10; sg 10:52 BP 132 / 86; Pulse 72; Resp 16; Pulse Ox 100% on R/A; hb 11:25 BP 126 / 72; Pulse 68; Resp 12 S; Pulse Ox 100% on R/A; Pain 7/10; sg Doris Coma Score: 09:30 Eye Response: spontaneous(4). Verbal Response: oriented(5). Motor Response: obeys sg commands(6). Total: 15. 10:30 Eye Response: spontaneous(4). Verbal Response: oriented(5). Motor Response: obeys sg commands(6). Total: 15. 11:30 Eye Response: spontaneous(4). Verbal Response: oriented(5). Motor Response: obeys sg commands(6). Total: 15. Trauma Score (Adult): 09:30 Eye Response: spontaneous(1); Verbal Response: oriented(1); Motor Response: obeys sg commands(2); Systolic BP: > 89 mm Hg(4); Respiratory Rate: 10 to 29 per min(4); Doris Score: 15; Trauma Score: 12 10:30 Eye Response: spontaneous(1); Verbal Response: oriented(1); Motor Response: obeys sg commands(2); Systolic BP: > 89 mm Hg(4); Respiratory Rate: 10 to 29 per min(4); [place] Score: 15; Trauma Score: 12 11:30 Eye Response: spontaneous(1); Verbal Response: oriented(1); Motor Response: obeys sg commands(2); Systolic BP: > 89 mm Hg(4); Respiratory Rate: 10 to 29 per min(4); Doris Score: 15; Trauma Score: 12 MDM: 09:35 Patient medically screened. [facility] 09:44 Data reviewed: vital signs, nurses notes, lab test result(s), EKG, radiologic studies, [facility] CT scan, plain films. 07/26 09:39 Order name: Basic Metabolic Panel [facility] 07/26 09:39 Order name: BNP [facility] 07/26 09:39 Order name: CBC with Diff; Complete Time: 10:50 [facility] 07/26 09:39 Order name: Ckmb [facility] 07/26 09:39 Order name: CPK [facility] 07/26 09:39 Order name: LFT's [facility] 07/26 09:39 Order name: Magnesium [facility] 07/26 09:39 Order name: PT-INR; Complete Time: 10:50 [facility] 07/26 09:39 Order name: Ptt, Activated; Complete Time: 10:50 [facility] 07/26 09:39 Order name: Troponin (emerg Dept Use Only); Complete Time: 10:50 [facility] 07/26 09:39 Order name: Acetaminophen [facility] 07/26 09:39 Order name: ETOH Level [facility] 07/26 09:39 Order name: Salicylate [facility] 07/26 09:39 Order name: Urine Drug Screen [facility] 07/26 09:39 Order name: XRAY Chest (1 view); Complete Time: 10:50 [facility] 07/26 09:39 Order name: EKG; Complete Time: 09:41 [facility] 07/26 09:39 Order name: Cardiac monitoring; Complete Time: 09:47 [facility] 07/26 09:39 Order name: IV Saline Lock; Complete Time: 10:01 [facility] 07/26 09:39 Order name: Labs collected and sent; Complete Time: 10:01 [facility] 07/26 09:39 Order name: O2 Per Protocol; Complete Time: 09:47 [facility] 07/26 09:39 Order name: O2 Sat Monitoring; Complete Time: 09:47 [facility] 07/26 09:39 Order name: CT C Spine; Complete Time: 10:50 [facility] 07/26 09:39 Order name: Tegretol Level [facility] Administered Medications: 10:01 Drug: NS 0.9% 1000 ml Route: IV; Rate: 1 bolus; Site: left hand; sg 11:00 Follow up: Response: No adverse reaction; IV Status: Completed infusion hb Disposition: 07/26/17 10:52 Discharged to Home. Impression: Suicidal ideations, Suicide attempt - non toxic overdodse, hanging. - Condition is Stable. - Discharge Instructions: Depression, Adult, Helping Someone Who is Suicidal, No-harm Safety Contract, Depression, Adult, [id number]. - Medication Reconciliation Form, Thank You Letter, Antibiotic Education, Prescription Opioid Use form. - Follow up: Private Physician; When: Upon discharge from the Emergency Department; Reason: Recheck today's complaints, Continuance of care, Re-evaluation by your physician. - Problem is new. - Symptoms have improved. Signatures: Dispatcher [employer] EDSunil Woodard RN RN sg Luiz Ramirez MD MD cha Calderon, Audri RN RN aa5 Joyce Girard RN RN Corrections: (The following items were deleted from the chart) 11:39 10:52 07/26/2017 10:52 Discharged to Home. Impression: Suicidal ideations; Suicide aa5 attempt - non toxic overdodse, hanging. Condition is Stable. Forms are Medication Reconciliation Form, Thank You Letter, Antibiotic Education, Prescription Opioid Use. Follow up: Private Physician; When: Upon discharge from the Emergency Department; Reason: Recheck today's complaints, Continuance of care, Re-evaluation by your physician. Problem is new. Symptoms have improved. renu
[2017-07-26 11:10] LABS: CKMB Creatine Kinase MB 0.9 ng/ml (0.3-4.0)
[2017-07-26 11:49] LABS: Barbiturates NEGATIVE; Benzodiazepines NEGATIVE; Cocaine NEGATIVE; METHAMPHETAM NEGATIVE; Opiates NEGATIVE; Phencyclidine NEGATIVE; THC Cannibis NEGATIVE
--- NOTE | 2017-07-27 10:32 | EKG ---
Test Date: 2017-07-26 Test Time: 10:18:43 Egg Worker: PUJA MEASUREMENT RESULTS: Intervals: Rate: 66 CA: 128 QRSD: 82 QT: 398 QTc: 417 [place]: P: 58 CA: 128 QRS: 86 T: 66 INTERPRETIVE STATEMENTS: Normal sinus rhythm Normal ECG Compared to ECG 06/26/2017 03:17:03 No significant changes Electronically Signed On 07-27-17 10:27:38 CDT by Maurice Evans
== END 2017-07-26 11:39 | disposition home or self-care (01) ==
LOC: ER 09:30
DX: T14.91XA Suicide attempt, initial encounter (principal); T42.1X2A Poisoning by iminostilbenes, intentional self-harm, initial encounter; X83.8XXA Intentional self-harm by other specified means, initial encounter; Y93.9 Activity, unspecified; Y92.89 Other specified places as the place of occurrence of the external cause
CPT/HCPCS: 36415; 71045; 72125; 80048; 80076; 80156; 80307; 80320; 80329; 82550; 82553; 83735; 83880; 84484; 85025; 85610; 85730; 93005; 96360; 99285; J7030